=== PATIENT | female | born 1940 | race Caucasian/White ===

== ENCOUNTER 2021-05-02 08:33 | Inpatient (IN) ==
[2021-05-02] MEDS ORDERED: ALBUTEROL/IPRATROPIUM 3 ML NEB RESP TX PRN (14:21)
[2021-05-02] MEDS ORDERED: hydrALAZINE 20 MG/1 ML VIAL IV PRN (14:21)
[2021-05-02] MEDS ORDERED: ONDANSETRON 4 MG/2 ML VIAL IV PRN (14:21)
[2021-05-02] MEDS ORDERED: GLUCAGON 1 MG VIAL IM PRN (14:21)
[2021-05-02] MEDS ORDERED: DEXTROSE 50% 25 GM/50 ML SYRINGE IV PRN (14:27)
[2021-05-02] MEDS ORDERED: CLOPIDOGREL 75 MG TABLET PO PRN (15:26)
[2021-05-02] MEDS ORDERED: CETIRIZINE 10 MG TABLET PO PRN (15:31)
[2021-05-02] MEDS: HEPARIN 5,000 UNIT/1 ML VIAL SUBCUT SCH (15:32)
[2021-05-02] MEDS: FUROSEMIDE 40 MG/4 ML VIAL IV SCH (15:32)
[2021-05-02 15:45] LABS: Basophils % 0.1 % (0.0-0.8); Eosinophils # 0.1 10*3/uL (0.0-0.87); Eosinophils % 0.7 % (0.00-10.9); Hematocrit 22.2 VOL% (35.7-47.0); Immature Granulocytes % 0.7 %; Immature Granulocytes Absolute 0.07 #; Lymphocytes # 1.6 10*3/uL (1.4-4.0); Lymphocytes % 14.8 % (21.3-54.2); Mean Corpuscular HGB Conc 31.5 GM/DL (32-36); Mean Corpuscular Volume 93.7 FL (87-102); Mean Platelet Volume 10.4 FL (9.6-12.0); Monocytes % 8.4 % (1.7-12.7); Neutrophils % 75.3 % (38.7-73.9); Platelet Count 192 T/CUMM (130-400); Red Blood Count 2.37 MC/CUMM (3.8-5.5); Red Cell Distribution Width 15.9 % (9.3-17.3); White Blood Count 10.6 T/CUMM (4-12)
[2021-05-02 16:10] LABS: Alanine Aminotransferase 10 U/L (13-56); Albumin 2.5 G/DL (3.4-5.0); Alkaline Phosphatase 33 U/L (45-117); Aspartate Amino Transferase 11 U/L (0-37); Bilirubin,Total < 0.39 MG/DL (0.20-1.00); Blood Urea Nitrogen 71 MG/DL (7-18); Calcium 12.8 MG/DL (8.5-10.1); Carbon Dioxide 22 MMOL/L (21-32); Estimated Glom Filtration Rate 6 ML/MIN; Glucose 108 MG/DL (74-106); Potassium 4.3 MMOL/L (3.5-5.1); Sodium 136 MMOL/L (136-145)
[2021-05-02] MEDS: cloNIDine 0.1 MG TABLET PO SCH (22:22)
[2021-05-02] MEDS: CALCIUM CARBONATE CHEW 500 MG TABLET PO SCH (22:22)
[2021-05-02] MEDS: ACETAMINOPHEN 325 MG TABLET PO PRN (22:22)
[2021-05-02] MEDS: carvediloL 6.25 MG TABLET PO SCH (22:37)
[2021-05-03] MEDS: HEPARIN 5,000 UNIT/1 ML VIAL SUBCUT SCH (04:31)
[2021-05-03 05:44] LABS: Basophils % 0.2 % (0.0-0.8); Eosinophils # 0.3 10*3/uL (0.0-0.87); Eosinophils % 2.6 % (0.00-10.9); Hematocrit 20.9 VOL% (35.7-47.0); Hemoglobin 6.5 GM/DL (12.0-16.0); Immature Granulocytes % 0.4 %; Immature Granulocytes Absolute 0.04 #; Lymphocytes % 20.6 % (21.3-54.2); Mean Corpuscular HGB Conc 31.1 GM/DL (32-36); Mean Corpuscular Volume 95.9 FL (87-102); Mean Platelet Volume 10.6 FL (9.6-12.0); Monocytes % 11.6 % (1.7-12.7); Neutrophils % 64.6 % (38.7-73.9); Platelet Count 163 T/CUMM (130-400); Red Blood Count 2.18 MC/CUMM (3.8-5.5); Red Cell Distribution Width 15.9 % (9.3-17.3); White Blood Count 9.7 T/CUMM (4-12)
[2021-05-03 06:06] LABS: Risk Ratio 4.97
[2021-05-03 07:21] LABS: Calcium 12.2 MG/DL (8.5-10.1); Potassium 4.2 MMOL/L (3.5-5.1)
[2021-05-03] MEDS: FUROSEMIDE 40 MG/4 ML VIAL IV SCH ×2 (08:48→15:28)
[2021-05-03] MEDS: SERTRALINE 25 MG TABLET PO SCH (08:48)
[2021-05-03] MEDS: FERROUS SULFATE 325 MG TABLET PO SCH (08:48)
[2021-05-03] MEDS: carvediloL 6.25 MG TABLET PO SCH ×2 (08:48→21:09)
[2021-05-03] MEDS: PANTOPRAZOLE 40 MG TABLET PO SCH (08:48)
[2021-05-03] MEDS: ASPIRIN CHEW 81 MG TABLET PO SCH (08:48)
[2021-05-03] MEDS: CALCIUM CARBONATE CHEW 500 MG TABLET PO SCH ×3 (08:49→21:09)
[2021-05-03] MEDS ORDERED: SODIUM CHLORIDE 0.9% 1,000 ML IV PRN (10:09)
[2021-05-03] MEDS: ENOXAPARIN 60 MG/0.6 ML SYRINGE SUBCUT SCH ×2 (13:14→21:10)
[2021-05-03] MEDS: cloNIDine 0.1 MG TABLET PO SCH (21:09)
[2021-05-03] MEDS: ACETAMINOPHEN 325 MG TABLET PO PRN (21:10)
[2021-05-04 05:38] LABS: Basophils % 0.2 % (0.0-0.8); Eosinophils # 0.4 10*3/uL (0.0-0.87); Eosinophils % 3.3 % (0.00-10.9); Hematocrit 28.7 VOL% (35.7-47.0); Immature Granulocytes % 0.4 %; Immature Granulocytes Absolute 0.04 #; Lymphocytes # 1.7 10*3/uL (1.4-4.0); Lymphocytes % 15.8 % (21.3-54.2); Mean Corpuscular HGB Conc 32.8 GM/DL (32-36); Mean Corpuscular Volume 89.4 FL (87-102); Mean Platelet Volume 10.6 FL (9.6-12.0); Monocytes % 10.7 % (1.7-12.7); Neutrophils % 69.6 % (38.7-73.9); Platelet Count 171 T/CUMM (130-400); Red Cell Distribution Width 16.6 % (9.3-17.3); White Blood Count 10.6 T/CUMM (4-12)
[2021-05-04 05:50] LABS: Hemoglobin 9.4 GM/DL (12.0-16.0); Red Blood Count 3.21 MC/CUMM (3.8-5.5)
[2021-05-04 05:59] LABS: % Iron Saturation 33.2 % (18-50); Ferritin 260.8 ng/mL (8-252); Uric Acid 9.7 MG/DL (2.6-6.0)
[2021-05-04 06:01] LABS: Albumin 2.5 G/DL (3.4-5.0); Bilirubin,Total 0.5 MG/DL (0.20-1.00); Calcium 12.5 MG/DL (8.5-10.1); Osmolality,Calculated 293.8 MOS/KG (273-304); Potassium 3.9 MMOL/L (3.5-5.1); Total Protein 5.3 G/DL (6.4-8.2)
[2021-05-04 06:02] LABS: Amorphous Crystals,Urine Occasional /HPF (Few); Bacteria,Urine Occasional /HPF (Few); Bilirubin,Urine Negative (Negative); Blood, Urine Small mg/dL (Negative); Glucose,Urine (UA) 50 mg/dL (Negative); Hyaline Casts,Urine 3 /LPF (0-3); Ketones,Urine Negative (Negative); Mucus,Urine Occasional /LPF (Occasional); Nitrite,Urine Negative (Negative); Protein,Urine 100 MG/DL; RBC,Urine 10 /HPF (0-4); Squamous Epithelial Cell,Urine Occasional /HPF (0-10); Urine Appearance CLEAR (Clear); Urine Color Straw (Yellow); Urine Urobilinogen < 2.0 EU/DL (0.2-1.0)
[2021-05-04 06:05] LABS: Protein/Creatinine Ratio,Urine 7.1 RATIO
[2021-05-04 06:29] LABS: Total Protein 5.2 G/DL (6.4-8.2)
[2021-05-04] MEDS: FUROSEMIDE 40 MG/4 ML VIAL IV SCH ×2 (08:45→15:40)
[2021-05-04] MEDS: ASPIRIN CHEW 81 MG TABLET PO SCH (08:46)
[2021-05-04] MEDS: PANTOPRAZOLE 40 MG TABLET PO SCH (08:46)
[2021-05-04] MEDS: ENOXAPARIN 60 MG/0.6 ML SYRINGE SUBCUT SCH ×2 (08:46→20:26)
[2021-05-04] MEDS: carvediloL 6.25 MG TABLET PO SCH ×2 (08:46→20:26)
[2021-05-04] MEDS: FERROUS SULFATE 325 MG TABLET PO SCH (08:46)
[2021-05-04] MEDS: SERTRALINE 25 MG TABLET PO SCH (08:46)
[2021-05-04] MEDS: ACETAMINOPHEN 325 MG TABLET PO PRN (14:57)
[2021-05-04] MEDS: hydrOXYzine HCL 10 MG TABLET PO PRN (16:33)
[2021-05-04] MEDS: cloNIDine 0.1 MG TABLET PO SCH (20:26)
[2021-05-05 04:23] LABS: Basophils % 0.3 % (0.0-0.8); Eosinophils # 0.3 10*3/uL (0.0-0.87); Eosinophils % 2.9 % (0.00-10.9); Hematocrit 29.4 VOL% (35.7-47.0); Hemoglobin 9.5 GM/DL (12.0-16.0); Immature Granulocytes % 0.3 %; Immature Granulocytes Absolute 0.03 #; Lymphocytes # 1.3 10*3/uL (1.4-4.0); Lymphocytes % 14.8 % (21.3-54.2); Mean Corpuscular HGB Conc 32.3 GM/DL (32-36); Mean Corpuscular Volume 89.9 FL (87-102); Mean Platelet Volume 10.5 FL (9.6-12.0); Monocytes % 9.8 % (1.7-12.7); Neutrophils % 71.9 % (38.7-73.9); Platelet Count 188 T/CUMM (130-400); Red Blood Count 3.27 MC/CUMM (3.8-5.5); Red Cell Distribution Width 16.5 % (9.3-17.3); White Blood Count 9.1 T/CUMM (4-12)
[2021-05-05 04:38] LABS: Calcium 11.9 MG/DL (8.5-10.1); Osmolality,Calculated 296.5 MOS/KG (273-304); Potassium 3.9 MMOL/L (3.5-5.1)
[2021-05-05] MEDS: FERROUS SULFATE 325 MG TABLET PO SCH (09:28)
[2021-05-05] MEDS: PANTOPRAZOLE 40 MG TABLET PO SCH (09:28)
[2021-05-05] MEDS: ASPIRIN CHEW 81 MG TABLET PO SCH (09:28)
[2021-05-05] MEDS: SERTRALINE 25 MG TABLET PO SCH (09:28)
[2021-05-05] MEDS: FUROSEMIDE 40 MG/4 ML VIAL IV SCH ×2 (09:29→16:36)
[2021-05-05] MEDS: carvediloL 6.25 MG TABLET PO SCH ×2 (09:29→20:48)
[2021-05-05] MEDS: ENOXAPARIN 60 MG/0.6 ML SYRINGE SUBCUT SCH ×2 (09:29→20:46)
[2021-05-05] MEDS ORDERED: cloNIDine 0.1 MG TABLET PO PRN (11:45)
[2021-05-05] MEDS ORDERED: CHOLECALCIFEROL 5,000 UNIT TABLET PO SCH (15:26)
[2021-05-05] MEDS: hydrOXYzine HCL 10 MG TABLET PO PRN (20:47)
[2021-05-05] MEDS: cloNIDine 0.1 MG TABLET PO SCH (20:47)
[2021-05-06 06:13] LABS: Basophils % 0.3 % (0.0-0.8); Eosinophils # 0.5 10*3/uL (0.0-0.87); Eosinophils % 6.8 % (0.00-10.9); Hematocrit 29.1 VOL% (35.7-47.0); Hemoglobin 9.1 GM/DL (12.0-16.0); Immature Granulocytes % 0.4 %; Immature Granulocytes Absolute 0.03 #; Lymphocytes # 1.7 10*3/uL (1.4-4.0); Lymphocytes % 22.9 % (21.3-54.2); Mean Corpuscular HGB Conc 31.3 GM/DL (32-36); Mean Corpuscular Volume 91.2 FL (87-102); Mean Platelet Volume 11.1 FL (9.6-12.0); Monocytes % 12.2 % (1.7-12.7); Neutrophils % 57.4 % (38.7-73.9); Platelet Count 177 T/CUMM (130-400); Red Blood Count 3.19 MC/CUMM (3.8-5.5); White Blood Count 7.4 T/CUMM (4-12)
[2021-05-06 06:31] LABS: Random Urine Protein (Bench) 249 MG/DL (<11.9)
[2021-05-06 06:31] LABS: Immunoglobulin A (Chem) 218 MG/DL (70-400); Immunoglobulin G (Chem) 559 MG/DL (700-1600); Immunoglobulin M (Chem) 70 MG/DL (40-230); Total Protein (Chem) 5.2 G/DL (6.4-8.3)
[2021-05-06 06:59] LABS: Calcium 11.1 MG/DL (8.5-10.1); Osmolality,Calculated 297.4 MOS/KG (273-304); Potassium 3.5 MMOL/L (3.5-5.1)
[2021-05-06] MEDS: FERROUS SULFATE 325 MG TABLET PO SCH (09:22)
[2021-05-06] MEDS: SERTRALINE 25 MG TABLET PO SCH (09:22)
[2021-05-06] MEDS: carvediloL 6.25 MG TABLET PO SCH ×2 (09:22→21:45)
[2021-05-06] MEDS: ASPIRIN CHEW 81 MG TABLET PO SCH (09:22)
[2021-05-06] MEDS: PANTOPRAZOLE 40 MG TABLET PO SCH (09:23)
[2021-05-06] MEDS: FUROSEMIDE 40 MG/4 ML VIAL IV SCH ×2 (09:23→18:33)
[2021-05-06] MEDS: ENOXAPARIN 60 MG/0.6 ML SYRINGE SUBCUT SCH ×2 (09:23→21:43)
[2021-05-06 10:06] LABS: Albumin (SPE) 3.2 G/DL (3.2-5.3); Albumin (SPE) Rel % 62.1 %; Alpha 1 (SPE) 0.2 G/DL (0.1-0.4); Alpha 1 (SPE) Rel % 4.5 %; Alpha 2 (SPE) 0.6 G/DL (0.4-1.0); Alpha 2 (SPE) Rel % 12.3 %; Beta (SPE) 0.6 G/DL (0.5-1.1); Beta (SPE) Rel % 11.9 %; Gamma (SPE) 0.5 G/DL (0.7-1.7); Gamma (SPE) Rel % 9.2 %
[2021-05-06 10:08] LABS: Albumin (UPER) 175.7 MG/DL; Albumin (UPER) Rel% 70.6 %; Alpha 1 (UPER) 14.9 MG/DL; Alpha 2 (UPER) 15.2 MG/DL; Alpha 2 (UPER) Rel % 6.1 %; Beta (UPER) 23.4 MG/DL; Beta (UPER) Rel % 9.4 %; Gamma (UPER) 19.7 MG/DL; Gamma (UPER) Rel % 7.9 %
[2021-05-06] MEDS ORDERED: LIDOCAINE 1%/EPI INJ 20 ML VIAL ONE (14:40)
[2021-05-06] MEDS ORDERED: HEPARIN 5,000 UNIT/1 ML VIAL ONE (14:40)
[2021-05-06] MEDS ORDERED: BUPIVACAINE MPF 0.25% 30 ML VIAL ONE (14:40)
[2021-05-06] MEDS ORDERED: LIDOCAINE 2% 5 ML VIAL ONE (14:41)
[2021-05-06] MEDS ORDERED: ETOMIDATE 40 MG/20 ML VIAL IV ONE (14:41)
[2021-05-06] MEDS ORDERED: propofoL 200 MG/20 ML VIAL IV ONE (14:41)
[2021-05-06] MEDS ORDERED: KETAMINE 500 MG/10 ML VIAL ONE (14:43)
[2021-05-06] MEDS ORDERED: MIDAZOLAM 2 MG/2 ML VIAL ONE (14:43)
[2021-05-06] MEDS ORDERED: SODIUM CHLORIDE 0.9% 250 ML IV ONE (17:08)
[2021-05-06] MEDS ORDERED: TISSUE ADHESIVE 1 EACH APPLICATOR TOP ONE (17:11)
[2021-05-06] MEDS: cloNIDine 0.1 MG TABLET PO SCH (21:43)
[2021-05-06] MEDS: MORPHINE 2 MG/1 ML SYRINGE IV PRN (22:36)
[2021-05-07] MEDS: MORPHINE 2 MG/1 ML SYRINGE IV PRN ×3 (02:23→14:44)
[2021-05-07 06:19] LABS: Hepatitis B Core IgM Quant 0.15 Index; Hepatitis B Surface Ag Quant < 0.10 Index; Hepatitis B Surface Ag Result Non-Reactive (NonReactive); Hepatitis C Virus Ab Quant 0.04 Index; Hepatitis C Virus Ab Result Non-Reactive (NonReactive)
[2021-05-07] MEDS ORDERED: CLOPIDOGREL 75 MG TABLET PO SCH (09:00)
[2021-05-07] MEDS: ENOXAPARIN 60 MG/0.6 ML SYRINGE SUBCUT SCH (11:11)
[2021-05-07] MEDS: SERTRALINE 25 MG TABLET PO SCH (12:02)
[2021-05-07] MEDS: carvediloL 6.25 MG TABLET PO SCH ×2 (12:02→21:14)
[2021-05-07] MEDS: ASPIRIN CHEW 81 MG TABLET PO SCH (12:02)
[2021-05-07] MEDS: ROSUVASTATIN 20 MG TABLET PO SCH (12:02)
[2021-05-07] MEDS: PANTOPRAZOLE 40 MG TABLET PO SCH (12:02)
[2021-05-07] MEDS: FERROUS SULFATE 325 MG TABLET PO SCH (12:02)
[2021-05-07] MEDS: FUROSEMIDE 40 MG/4 ML VIAL IV SCH ×2 (12:03→17:25)
[2021-05-07 12:13] LABS: Basophils % 0.2 % (0.0-0.8); Eosinophils # 0.4 10*3/uL (0.0-0.87); Eosinophils % 3.6 % (0.00-10.9); Hematocrit 29.1 VOL% (35.7-47.0); Hemoglobin 9.2 GM/DL (12.0-16.0); Immature Granulocytes % 0.3 %; Immature Granulocytes Absolute 0.03 #; Lymphocytes # 1.9 10*3/uL (1.4-4.0); Lymphocytes % 18.8 % (21.3-54.2); Mean Corpuscular HGB Conc 31.6 GM/DL (32-36); Mean Corpuscular Volume 92.7 FL (87-102); Mean Platelet Volume 10.9 FL (9.6-12.0); Monocytes % 10.1 % (1.7-12.7); Platelet Count 206 T/CUMM (130-400); Red Blood Count 3.14 MC/CUMM (3.8-5.5); White Blood Count 9.9 T/CUMM (4-12)
[2021-05-07 12:48] LABS: Calcium 10.3 MG/DL (8.5-10.1); Osmolality,Calculated 297.4 MOS/KG (273-304); Potassium 3.9 MMOL/L (3.5-5.1)
[2021-05-07] MEDS: cloNIDine 0.1 MG TABLET PO SCH (21:14)
[2021-05-08 05:14] LABS: Basophils % 0.2 % (0.0-0.8); Eosinophils # 0.3 10*3/uL (0.0-0.87); Eosinophils % 3.4 % (0.00-10.9); Hematocrit 27.2 VOL% (35.7-47.0); Hemoglobin 8.4 GM/DL (12.0-16.0); Immature Granulocytes % 0.7 %; Immature Granulocytes Absolute 0.07 #; Lymphocytes # 1.7 10*3/uL (1.4-4.0); Lymphocytes % 16.8 % (21.3-54.2); Mean Corpuscular HGB Conc 30.9 GM/DL (32-36); Mean Corpuscular Volume 92.2 FL (87-102); Monocytes % 11.1 % (1.7-12.7); Neutrophils % 67.8 % (38.7-73.9); Platelet Count 195 T/CUMM (130-400); Red Blood Count 2.95 MC/CUMM (3.8-5.5); Red Cell Distribution Width 15.9 % (9.3-17.3); White Blood Count 9.9 T/CUMM (4-12)
[2021-05-08 05:35] LABS: Calcium 9.9 MG/DL (8.5-10.1); Osmolality,Calculated 303.3 MOS/KG (273-304); Potassium 3.7 MMOL/L (3.5-5.1)
[2021-05-08] MEDS: FUROSEMIDE 40 MG/4 ML VIAL IV SCH ×2 (09:08→17:05)
[2021-05-08] MEDS ORDERED: ENOXAPARIN 60 MG/0.6 ML SYRINGE SUBCUT SCH (10:30)
[2021-05-08] MEDS ORDERED: BUPIVACAINE MPF 0.25% 30 ML VIAL ONE (11:30)
[2021-05-08] MEDS ORDERED: HEPARIN 5,000 UNIT/1 ML VIAL ONE (11:30)
[2021-05-08] MEDS ORDERED: LIDOCAINE 1%/EPI INJ 20 ML VIAL ONE (11:31)
[2021-05-08] MEDS ORDERED: TISSUE ADHESIVE 1 EACH APPLICATOR TOP ONE (11:50)
[2021-05-08] MEDS ORDERED: SODIUM CHLORIDE 0.9% 250 ML IV SCH (12:30)
[2021-05-08] MEDS ORDERED: ETOMIDATE 40 MG/20 ML VIAL IV ONE (12:40)
[2021-05-08] MEDS ORDERED: KETAMINE 500 MG/10 ML VIAL ONE (12:40)
[2021-05-08] MEDS ORDERED: LIDOCAINE 2% 5 ML VIAL ONE (12:51)
[2021-05-08] MEDS ORDERED: SODIUM CHLORIDE 0.9% 250 ML IV ONE (12:54)
[2021-05-08] MEDS ORDERED: TUBERCULIN SKIN TEST 0.1 ML SYRINGE INTRADERM ONE ×2 (14:09→20:00)
[2021-05-08] MEDS: ASPIRIN CHEW 81 MG TABLET PO SCH (14:35)
[2021-05-08] MEDS: carvediloL 6.25 MG TABLET PO SCH ×2 (14:36→21:23)
[2021-05-08] MEDS: ROSUVASTATIN 20 MG TABLET PO SCH (14:36)
[2021-05-08] MEDS: PANTOPRAZOLE 40 MG TABLET PO SCH (14:36)
[2021-05-08] MEDS: SERTRALINE 25 MG TABLET PO SCH (14:36)
[2021-05-08] MEDS: FERROUS SULFATE 325 MG TABLET PO SCH (14:36)
[2021-05-08] MEDS ORDERED: HEPARIN 10,000 UNIT/10 ML VIAL IV PRN (14:43)
[2021-05-08] MEDS ORDERED: APIXABAN 5 MG TABLET PO SCH (21:00)
[2021-05-08] MEDS: cloNIDine 0.1 MG TABLET PO SCH (21:22)
[2021-05-08] MEDS: MORPHINE 2 MG/1 ML SYRINGE IV PRN (21:25)
[2021-05-09 07:12] LABS: Basophils % 0.2 % (0.0-0.8); Eosinophils # 0.4 10*3/uL (0.0-0.87); Eosinophils % 2.9 % (0.00-10.9); Hematocrit 24.5 VOL% (35.7-47.0); Hemoglobin 7.8 GM/DL (12.0-16.0); Immature Granulocytes % 0.3 %; Immature Granulocytes Absolute 0.04 #; Lymphocytes # 1.7 10*3/uL (1.4-4.0); Lymphocytes % 14.5 % (21.3-54.2); Mean Corpuscular HGB Conc 31.8 GM/DL (32-36); Mean Corpuscular Volume 91.4 FL (87-102); Mean Platelet Volume 11.1 FL (9.6-12.0); Monocytes % 11.2 % (1.7-12.7); Neutrophils % 70.9 % (38.7-73.9); Platelet Count 176 T/CUMM (130-400); Red Blood Count 2.68 MC/CUMM (3.8-5.5); Red Cell Distribution Width 15.9 % (9.3-17.3)
[2021-05-09 07:45] LABS: Calcium 8.6 MG/DL (8.5-10.1); Osmolality,Calculated 287.7 MOS/KG (273-304); Potassium 3.5 MMOL/L (3.5-5.1)
[2021-05-09] MEDS: SERTRALINE 25 MG TABLET PO SCH (09:38)
[2021-05-09] MEDS: FUROSEMIDE 40 MG/4 ML VIAL IV SCH ×2 (09:38→17:41)
[2021-05-09] MEDS: FERROUS SULFATE 325 MG TABLET PO SCH (09:38)
[2021-05-09] MEDS: carvediloL 6.25 MG TABLET PO SCH ×2 (09:38→20:50)
[2021-05-09] MEDS: ROSUVASTATIN 20 MG TABLET PO SCH (09:38)
[2021-05-09] MEDS: PANTOPRAZOLE 40 MG TABLET PO SCH (09:38)
[2021-05-09] MEDS: ASPIRIN CHEW 81 MG TABLET PO SCH (09:38)
[2021-05-09] MEDS ORDERED: EPOETIN ALFA-EPBX 10,000 UNIT/ML VIAL IV SCH (18:30)
[2021-05-09] MEDS: cloNIDine 0.1 MG TABLET PO SCH (20:49)
[2021-05-10] MEDS: MORPHINE 2 MG/1 ML SYRINGE IV PRN (00:28)
[2021-05-10 05:12] LABS: Basophils % 0.2 % (0.0-0.8); Eosinophils # 0.3 10*3/uL (0.0-0.87); Eosinophils % 2.5 % (0.00-10.9); Hematocrit 24.6 VOL% (35.7-47.0); Hemoglobin 7.7 GM/DL (12.0-16.0); Immature Granulocytes % 0.6 %; Immature Granulocytes Absolute 0.08 #; Lymphocytes # 1.6 10*3/uL (1.4-4.0); Lymphocytes % 12.9 % (21.3-54.2); Mean Corpuscular HGB Conc 31.3 GM/DL (32-36); Mean Corpuscular Volume 91.8 FL (87-102); Mean Platelet Volume 11.2 FL (9.6-12.0); Monocytes % 11.5 % (1.7-12.7); Neutrophils % 72.3 % (38.7-73.9); Platelet Count 162 T/CUMM (130-400); Red Blood Count 2.68 MC/CUMM (3.8-5.5); Red Cell Distribution Width 15.8 % (9.3-17.3); White Blood Count 12.5 T/CUMM (4-12)
[2021-05-10 05:34] LABS: Calcium 8.2 MG/DL (8.5-10.1); Osmolality,Calculated 278.7 MOS/KG (273-304); Potassium 3.1 MMOL/L (3.5-5.1)
[2021-05-10] MEDS: ROSUVASTATIN 20 MG TABLET PO SCH (08:38)
[2021-05-10] MEDS: carvediloL 6.25 MG TABLET PO SCH ×2 (08:38→20:55)
[2021-05-10] MEDS: FUROSEMIDE 40 MG/4 ML VIAL IV SCH (08:38)
[2021-05-10] MEDS: FERROUS SULFATE 325 MG TABLET PO SCH (08:38)
[2021-05-10] MEDS: POTASSIUM CHLORIDE 20 MEQ TABLET PO SCH ×2 (08:38→13:19)
[2021-05-10] MEDS: SERTRALINE 25 MG TABLET PO SCH (08:38)
[2021-05-10] MEDS: ASPIRIN CHEW 81 MG TABLET PO SCH (08:38)
[2021-05-10] MEDS: PANTOPRAZOLE 40 MG TABLET PO SCH (08:39)
[2021-05-10 10:11] LABS: Immuno Free Light Chain Kappa 5.94 MG/DL (0.33-1.94); Immuno Free Light Chain Lambda 4.41 MG/DL (0.57-2.63); Immuno Free Light Chain Ratio 1.35 MG/DL (0.26-1.65)
[2021-05-10] MEDS ORDERED: POTASSIUM CHLORIDE 20 MEQ TABLET PO SCH (12:53)
[2021-05-10 22:01] LABS: Fr Urinary Lambda Light Chain 25.17 mg/L (0.00-3.79); Free Urinary Kappa Light Chain 93.68 mg/L (0.00-32.90); IF FLC Collection Duration Random hr; IF FLC Collection Volume Random mL
[2021-05-10] MEDS: cloNIDine 0.1 MG TABLET PO SCH (23:10)
[2021-05-10] MEDS: clonazePAM 0.5 MG TABLET PO PRN (23:16)
[2021-05-11 05:44] LABS: Basophils % 0.3 % (0.0-0.8); Eosinophils # 0.4 10*3/uL (0.0-0.87); Hematocrit 24.1 VOL% (35.7-47.0); Hemoglobin 7.4 GM/DL (12.0-16.0); Immature Granulocytes % 0.6 %; Immature Granulocytes Absolute 0.07 #; Lymphocytes # 1.9 10*3/uL (1.4-4.0); Mean Corpuscular HGB Conc 30.7 GM/DL (32-36); Mean Corpuscular Volume 93.1 FL (87-102); Mean Platelet Volume 11.4 FL (9.6-12.0); Monocytes % 11.2 % (1.7-12.7); Neutrophils % 68.9 % (38.7-73.9); Platelet Count 180 T/CUMM (130-400); Red Blood Count 2.59 MC/CUMM (3.8-5.5); White Blood Count 11.8 T/CUMM (4-12)
[2021-05-11 06:06] LABS: Calcium 8.6 MG/DL (8.5-10.1); Osmolality,Calculated 276.7 MOS/KG (273-304); Potassium 3.9 MMOL/L (3.5-5.1)
[2021-05-11] MEDS: ASPIRIN CHEW 81 MG TABLET PO SCH (09:01)
[2021-05-11] MEDS: ROSUVASTATIN 20 MG TABLET PO SCH (09:02)
[2021-05-11] MEDS: carvediloL 6.25 MG TABLET PO SCH ×2 (09:02→20:51)
[2021-05-11] MEDS: PANTOPRAZOLE 40 MG TABLET PO SCH (09:02)
[2021-05-11] MEDS: FERROUS SULFATE 325 MG TABLET PO SCH (09:02)
[2021-05-11] MEDS: SERTRALINE 25 MG TABLET PO SCH (09:02)
[2021-05-11 17:35] LABS: Hematocrit 25.9 VOL% (35.7-47.0); Hemoglobin 7.9 GM/DL (12.0-16.0)
[2021-05-11] MEDS: clonazePAM 0.5 MG TABLET PO PRN (20:51)
[2021-05-11] MEDS: cloNIDine 0.1 MG TABLET PO SCH (20:52)
[2021-05-12] MEDS ORDERED: SODIUM CHLORIDE 0.9% 1,000 ML IV PRN (13:06)
[2021-05-12 13:27] LABS: Basophils % 0.2 % (0.0-0.8); Eosinophils # 0.4 10*3/uL (0.0-0.87); Eosinophils % 3.6 % (0.00-10.9); Hematocrit 24.6 VOL% (35.7-47.0); Hemoglobin 7.4 GM/DL (12.0-16.0); Immature Granulocytes % 0.6 %; Immature Granulocytes Absolute 0.07 #; Lymphocytes # 1.9 10*3/uL (1.4-4.0); Lymphocytes % 16.6 % (21.3-54.2); Mean Corpuscular HGB Conc 30.1 GM/DL (32-36); Mean Corpuscular Volume 93.9 FL (87-102); Mean Platelet Volume 11.4 FL (9.6-12.0); Monocytes % 9.1 % (1.7-12.7); Neutrophils % 69.9 % (38.7-73.9); Platelet Count 202 T/CUMM (130-400); Red Blood Count 2.62 MC/CUMM (3.8-5.5); Red Cell Distribution Width 16.2 % (9.3-17.3); White Blood Count 11.2 T/CUMM (4-12)
[2021-05-12 13:52] LABS: Calcium 8.5 MG/DL (8.5-10.1); Osmolality,Calculated 285.4 MOS/KG (273-304); Potassium 3.4 MMOL/L (3.5-5.1)
[2021-05-12] MEDS: ASPIRIN CHEW 81 MG TABLET PO SCH (15:19)
[2021-05-12] MEDS: carvediloL 6.25 MG TABLET PO SCH ×2 (15:20→20:42)
[2021-05-12] MEDS: PANTOPRAZOLE 40 MG TABLET PO SCH (15:20)
[2021-05-12] MEDS: ROSUVASTATIN 20 MG TABLET PO SCH (15:20)
[2021-05-12] MEDS: FERROUS SULFATE 325 MG TABLET PO SCH (15:20)
[2021-05-12] MEDS: SERTRALINE 25 MG TABLET PO SCH (15:21)
[2021-05-12] MEDS ORDERED: POTASSIUM CHLORIDE 20 MEQ TABLET PO ONE (15:36)
[2021-05-12] MEDS: cloNIDine 0.1 MG TABLET PO SCH (20:42)
[2021-05-12] MEDS: clonazePAM 0.5 MG TABLET PO PRN (20:43)
[2021-05-13 06:09] LABS: Basophils % 0.2 % (0.0-0.8); Eosinophils # 0.4 10*3/uL (0.0-0.87); Eosinophils % 3.6 % (0.00-10.9); Hemoglobin 7.3 GM/DL (12.0-16.0); Immature Granulocytes % 0.7 %; Immature Granulocytes Absolute 0.08 #; Lymphocytes # 1.9 10*3/uL (1.4-4.0); Lymphocytes % 15.7 % (21.3-54.2); Mean Corpuscular HGB Conc 30.4 GM/DL (32-36); Mean Corpuscular Volume 94.1 FL (87-102); Mean Platelet Volume 10.7 FL (9.6-12.0); Monocytes % 10.4 % (1.7-12.7); Neutrophils % 69.4 % (38.7-73.9); Platelet Count 237 T/CUMM (130-400); Red Blood Count 2.55 MC/CUMM (3.8-5.5); White Blood Count 12.3 T/CUMM (4-12)
[2021-05-13 06:36] LABS: Calcium 8.5 MG/DL (8.5-10.1); Osmolality,Calculated 286.5 MOS/KG (273-304)
[2021-05-13] MEDS: ROSUVASTATIN 20 MG TABLET PO SCH (11:30)
[2021-05-13] MEDS: SERTRALINE 25 MG TABLET PO SCH (11:30)
[2021-05-13] MEDS: FERROUS SULFATE 325 MG TABLET PO SCH (11:30)
[2021-05-13] MEDS: ASPIRIN CHEW 81 MG TABLET PO SCH (11:30)
[2021-05-13] MEDS: PANTOPRAZOLE 40 MG TABLET PO SCH (11:30)
[2021-05-13] MEDS ORDERED: ENOXAPARIN 60 MG/0.6 ML SYRINGE SUBCUT SCH (13:00)
[2021-05-13] MEDS: carvediloL 6.25 MG TABLET PO SCH ×2 (14:18→21:17)
[2021-05-13] MEDS: cloNIDine 0.1 MG TABLET PO SCH (21:17)
[2021-05-13] MEDS: clonazePAM 0.5 MG TABLET PO PRN (21:17)
[2021-05-14 06:59] LABS: Basophils % 0.3 % (0.0-0.8); Eosinophils # 0.4 10*3/uL (0.0-0.87); Eosinophils % 2.7 % (0.00-10.9); Hematocrit 29.6 VOL% (35.7-47.0); Hemoglobin 9.5 GM/DL (12.0-16.0); Immature Granulocytes % 1.1 %; Immature Granulocytes Absolute 0.15 #; Lymphocytes # 2.1 10*3/uL (1.4-4.0); Lymphocytes % 14.5 % (21.3-54.2); Mean Corpuscular HGB Conc 32.1 GM/DL (32-36); Mean Corpuscular Volume 91.9 FL (87-102); Mean Platelet Volume 10.6 FL (9.6-12.0); Monocytes % 10.9 % (1.7-12.7); NRBC # 0.02 10*3/uL; Neutrophils % 70.5 % (38.7-73.9); Platelet Count 212 T/CUMM (130-400); Red Blood Count 3.22 MC/CUMM (3.8-5.5); White Blood Count 14.1 T/CUMM (4-12)
[2021-05-14 07:35] LABS: Calcium 8.7 MG/DL (8.5-10.1); Osmolality,Calculated 272.2 MOS/KG (273-304); Potassium 3.7 MMOL/L (3.5-5.1)
[2021-05-14] MEDS: ASPIRIN CHEW 81 MG TABLET PO SCH (08:55)
[2021-05-14] MEDS: carvediloL 6.25 MG TABLET PO SCH (08:55)
[2021-05-14] MEDS: SERTRALINE 25 MG TABLET PO SCH (08:55)
[2021-05-14] MEDS: ROSUVASTATIN 20 MG TABLET PO SCH (08:55)
[2021-05-14] MEDS: PANTOPRAZOLE 40 MG TABLET PO SCH (08:56)
[2021-05-14] MEDS: FERROUS SULFATE 325 MG TABLET PO SCH (08:56)
[2021-05-14 12:14] VITALS: BP 128/63
== END 2021-05-14 14:36 | DRG 291 ==
LOC: N.5E → SUATTDRO 12:21 → OBSVTOIN 12:21
PROVIDERS: ADMIT Internal Medicine; ATTEND Internal Medicine

== ENCOUNTER 2021-10-21 06:51 | Inpatient (IN) ==
[2021-10-21] MEDS ORDERED: ASPIRIN 325 MG TABLET PO STA (07:08)
[2021-10-21] MEDS ORDERED: DILTIAZEM 25 MG/5 ML VIAL IV STA (07:09)
[2021-10-21] MEDS: DILTIAZEM INJ 100 MG in SODIUM CHLORIDE 0.9% 100 ML IV SCH ×2 (07:24→13:10)
[2021-10-21 07:37] LABS: Basophils % 0.3 % (0.0-0.8); Eosinophils # 0.5 10*3/uL (0.0-0.87); Eosinophils % 3.9 % (0.00-10.9); Hematocrit 33.9 VOL% (35.7-47.0); Hemoglobin 10.5 GM/DL (12.0-16.0); Immature Granulocytes Absolute 0.24 #; Lymphocytes % 8.5 % (21.3-54.2); Mean Corpuscular Volume 93.4 FL (87-102); Mean Platelet Volume 10.4 FL (9.6-12.0); Monocytes # 1.1 10*3/uL (0.11-0.8); Monocytes % 9.4 % (1.7-12.7); Neutrophils % 75.9 % (38.7-73.9); Platelet Count 232 T/CUMM (130-400); Red Blood Count 3.63 MC/CUMM (3.8-5.5); Red Cell Distribution Width 19.1 % (9.3-17.3); White Blood Count 11.9 T/CUMM (4-12)
[2021-10-21 07:43] LABS: PT Patient Result 11.5 SECS (10.5-12.0); Partial Thromboplastin Time 72.9 SECS (23.8-32.1)
[2021-10-21 07:59] LABS: Albumin 2.4 G/DL (3.4-5.0); Bilirubin,Total 0.4 MG/DL (0.20-1.00); Calcium 10.5 MG/DL (8.5-10.1); Osmolality,Calculated 294.4 MOS/KG (273-304); Potassium 4.3 MMOL/L (3.5-5.1)
[2021-10-21] MEDS ORDERED: BACITRACIN OINT 0.9 GM PACK TOP ONE (09:55)
[2021-10-21] MEDS ORDERED: ALBUTEROL 2.5 MG/3 ML NEB RESP TX PRN (10:39)
[2021-10-21] MEDS ORDERED: SIMETHICONE CHEW 125 MG TABLET PO PRN (10:44)
[2021-10-21] MEDS ORDERED: LACTULOSE 20 GM/30 ML UDCUP PO PRN (10:44)
[2021-10-21] MEDS ORDERED: ONDANSETRON 4 MG/2 ML VIAL IV PRN (10:44)
[2021-10-21] MEDS ORDERED: DOCUSATE SODIUM 100 MG CAPSULE PO PRN (10:44)
[2021-10-21] MEDS ORDERED: HEPARIN 5,000 UNIT/1 ML VIAL SUBCUT SCH (11:00)
[2021-10-21] MEDS ORDERED: AMIODARONE INJ 450 MG in DEXTROSE 5% 241 ML IV SCH ×2 (11:00→17:00)
[2021-10-21] MEDS ORDERED: SODIUM CHLORIDE 0.9% 1,000 ML IV SCH (11:00)
[2021-10-21 11:47] LABS: Thyroid Stimulating Hormone 0.538 uIU/ml (0.358-3.74)
[2021-10-21 12:06] LABS: Hepatitis B Core IgM Quant 0.18 Index; Hepatitis B Surface Ag Quant < 0.10 Index; Hepatitis B Surface Ag Result Non-Reactive (NonReactive); Hepatitis C Virus Ab Quant 0.05 Index; Hepatitis C Virus Ab Result Non-Reactive (NonReactive)
[2021-10-21] MEDS ORDERED: METOPROLOL TARTRATE 25 MG TABLET PO SCH (12:19)
[2021-10-21] MEDS: PANTOPRAZOLE 40 MG VIAL IV SCH (12:30)
[2021-10-21 14:01] VITALS: BP 103/62
[2021-10-21] MEDS ORDERED: CALCIUM GLUCONATE RIDER 1,000 MG/50 ML PREMIX IV ONE (14:10)
[2021-10-21] MEDS ORDERED: CALCIUM GLUCONATE 1,000 MG/10 ML VIAL IV ONE (14:12)
[2021-10-21] MEDS ORDERED: DOPamine 800 MG/250 ML PREMIX IV PRN (14:24)
[2021-10-21] MEDS ORDERED: HEPARIN 10,000 UNIT/10 ML VIAL IV SCH (18:30)
[2021-10-21] MEDS ORDERED: carvediloL 6.25 MG TABLET PO SCH (19:00)
[2021-10-21] MEDS ORDERED: ACETAMINOPHEN 325 MG TABLET ONE (19:22)
[2021-10-21] MEDS: ACETAMINOPHEN 325 MG TABLET PO PRN (19:25)
[2021-10-21] MEDS: AMITRIPTYLINE 25 MG TABLET PO SCH (20:52)
[2021-10-21] MEDS: APIXABAN 2.5 MG TABLET PO SCH (20:52)
[2021-10-21] MEDS: SERTRALINE 50 MG TABLET PO SCH (20:52)
[2021-10-22 03:42] LABS: Basophils % 0.3 % (0.0-0.8); Eosinophils # 0.5 10*3/uL (0.0-0.87); Eosinophils % 5.1 % (0.00-10.9); Hematocrit 29.3 VOL% (35.7-47.0); Hemoglobin 8.9 GM/DL (12.0-16.0); Immature Granulocytes % 0.8 %; Immature Granulocytes Absolute 0.08 #; Lymphocytes # 1.4 10*3/uL (1.4-4.0); Lymphocytes % 13.9 % (21.3-54.2); Mean Corpuscular HGB Conc 30.4 GM/DL (32-36); Mean Corpuscular Volume 93.6 FL (87-102); Mean Platelet Volume 10.4 FL (9.6-12.0); Monocytes # 1.2 10*3/uL (0.11-0.8); Neutrophils % 67.9 % (38.7-73.9); Platelet Count 204 T/CUMM (130-400); Red Blood Count 3.13 MC/CUMM (3.8-5.5); Red Cell Distribution Width 19.1 % (9.3-17.3); White Blood Count 9.9 T/CUMM (4-12)
[2021-10-22 04:02] LABS: Alanine Aminotransferase 349 U/L (13-56); Alkaline Phosphatase 125 U/L (45-117); Aspartate Amino Transferase 244 U/L (0-37); Bilirubin,Total < 0.39 MG/DL (0.20-1.00); Blood Urea Nitrogen 45 MG/DL (7-18); Calcium 9.5 MG/DL (8.5-10.1); Carbon Dioxide 26 MMOL/L (21-32); Chloride 104 MMOL/L (98-107); Cholesterol 61 MG/DL (50-200); Glucose 122 MG/DL (74-106); HDL Cholesterol 20 MG/DL (40-60); Osmolality,Calculated 287.7 MOS/KG (273-304); Risk Ratio 3.05; Sodium 138 MMOL/L (136-145); Triglycerides 73 MG/DL (2-150); VLDL Cholesterol 14.6 MG/DL
[2021-10-22] MEDS: ASPIRIN EC 81 MG TABLET PO SCH (07:32)
[2021-10-22] MEDS: APIXABAN 2.5 MG TABLET PO SCH ×2 (08:37→20:42)
[2021-10-22] MEDS: MULTIVITAMIN (BEROCCA) TABLET PO SCH (08:37)
[2021-10-22] MEDS: PANTOPRAZOLE 40 MG VIAL IV SCH (11:50)
[2021-10-22] MEDS: ACETAMINOPHEN 325 MG TABLET PO PRN (14:55)
[2021-10-22] MEDS: SERTRALINE 50 MG TABLET PO SCH (20:42)
[2021-10-22] MEDS: ASCORBIC ACID 500 MG TABLET PO SCH (20:42)
[2021-10-22] MEDS: AMITRIPTYLINE 25 MG TABLET PO SCH (20:46)
[2021-10-23 03:47] LABS: Basophils % 0.3 % (0.0-0.8); Eosinophils # 0.4 10*3/uL (0.0-0.87); Eosinophils % 4.2 % (0.00-10.9); Hematocrit 31.7 VOL% (35.7-47.0); Hemoglobin 9.5 GM/DL (12.0-16.0); Immature Granulocytes % 0.7 %; Immature Granulocytes Absolute 0.07 #; Lymphocytes # 1.5 10*3/uL (1.4-4.0); Lymphocytes % 16.1 % (21.3-54.2); Mean Corpuscular Volume 93.5 FL (87-102); Mean Platelet Volume 9.9 FL (9.6-12.0); Monocytes # 1.1 10*3/uL (0.11-0.8); Monocytes % 11.5 % (1.7-12.7); Neutrophils % 67.2 % (38.7-73.9); Platelet Count 238 T/CUMM (130-400); Red Blood Count 3.39 MC/CUMM (3.8-5.5); Red Cell Distribution Width 18.9 % (9.3-17.3); White Blood Count 9.5 T/CUMM (4-12)
[2021-10-23 04:16] LABS: Bilirubin,Total 0.4 MG/DL (0.20-1.00); Calcium 9.6 MG/DL (8.5-10.1); Potassium 4.6 MMOL/L (3.5-5.1); Total Protein 6.1 G/DL (6.4-8.2)
[2021-10-23 04:17] LABS: Total Protein 6.2 G/DL (6.4-8.2)
[2021-10-23 07:49] LABS: Total Protein (Chem) 6.2 G/DL (6.4-8.3)
[2021-10-23 07:50] LABS: Immunoglobulin A (Chem) 289 MG/DL (70-400); Immunoglobulin G (Chem) 716 MG/DL (700-1600); Immunoglobulin M (Chem) 86 MG/DL (40-230)
[2021-10-23] MEDS: ASCORBIC ACID 500 MG TABLET PO SCH (08:24)
[2021-10-23] MEDS: APIXABAN 2.5 MG TABLET PO SCH (08:25)
[2021-10-23] MEDS: MULTIVITAMIN (BEROCCA) TABLET PO SCH (08:25)
[2021-10-23] MEDS: ASPIRIN EC 81 MG TABLET PO SCH (08:25)
[2021-10-23 09:35] LABS: Albumin (SPE) Rel % 50.8 %; Alpha 1 (SPE) Rel % 6.1 %; Alpha 2 (SPE) Rel % 18.1 %; Beta (SPE) Rel % 9.8 %; Gamma (SPE) Rel % 15.2 %
[2021-10-23 09:47] LABS: Albumin (SPE) 3.1 G/DL (3.2-5.3); Alpha 1 (SPE) 0.4 G/DL (0.1-0.4); Alpha 2 (SPE) 1.1 G/DL (0.4-1.0)
[2021-10-23 09:48] LABS: Beta (SPE) 0.6 G/DL (0.5-1.1); Gamma (SPE) 0.9 G/DL (0.7-1.7)
[2021-10-23] MEDS: ACETAMINOPHEN 325 MG TABLET PO PRN (09:53)
== END 2021-10-23 19:50 | disposition home health service (06) | DRG 308 ==
LOC: EDUNIT# → EDBD → N.ED 06:51 → N.EDINP 10:39 → SUATTDRO 10:39 → N.CC 12:11
PROVIDERS: ADMIT Internal Medicine; ATTEND Internal Medicine